=== PATIENT | female | born 1980 | race Two or more races ===

== ENCOUNTER 2017-07-24 11:07 | Inpatient (IN) | payer BC ==
[~2017-07-24] VITALS: Ht 162.6 cm; Wt 44.2 kg
[2017-07-24 11:17] VITALS: Ht 162.6 cm; Wt 44.2 kg
[2017-07-24 12:15] LABS: microscopic required? NO
[2017-07-24 12:21] LABS: BASOPHIL % 0.4 % (0-2); PLATELET COUNT 223 x10^3mcL (130-400)
[2017-07-24 12:24] LABS: UA SPECIFIC GRAVITY <=1.005 (1.005-1.035); urine erythrocyte NEGATIVE (NEGATIVE)
[2017-07-24 12:43] LABS: CALCIUM 9.6 mg/dL (8.5-10.1); CARBON DIOXIDE 29.1 mmol/L (21-32); CHLORIDE SERUM 98 mmol/L (98-107); CREATININE SERUM 1.1 mg/dL (0.6-1.0); GFR1 59 mL/min; GLUCOSE SERUM 100 mg/dL (74-106); POTASSIUM SERUM 3.8 mmol/L (3.5-5.1); SODIUM SERUM 136 mmol/L (136-145)
[2017-07-24 12:44] LABS: AMPHETAMINE QUAL UR NONE DETECTED (NEG <=1000)
[2017-07-24 12:48] LABS: ALBUMIN 4.1 g/dL (3.4-5.0); ALKALINE PHOSPHATASE 69 U/L (46-116); ALT/SGPT 21 U/L (14-59); AST/SGOT 15 U/L (15-37); BILIRUBIN TOTAL 0.49 mg/dL (0.20-1.00); TOTAL PROTEIN, SERUM 7.3 g/dL (6.4-8.2)
[2017-07-24 14:20] LABS: T3 TOTAL 0.86 ng/mL
[2017-07-24 14:35] LABS: CHOLESTEROL/HDL RATIO 2.6; MAGNESIUM 2.1 mg/dL (1.8-2.4); PHOSPHOROUS 4.9 mg/dL (2.5-4.9)
[2017-07-24 15:30] VITALS: BP 99/55
[2017-07-24 15:51] LABS: FREE T4 1.03 ng/dL (0.76-1.46); T4(THYROXINE) 8.7 ug/dL (4.7-13.3)
[2017-07-24 18:37] VITALS: BP 91/59
[2017-07-24 20:00] VITALS: BP 86/54
[2017-07-25 05:26] LABS: BASOPHIL % 0.6 % (0-2); PLATELET COUNT 180 x10^3mcL (130-400); RED CELL DISTRIBUTION WIDTH 14.1 % (11.5-14.5)
[2017-07-25 05:42] LABS: CALCIUM 8.2 mg/dL (8.5-10.1); CARBON DIOXIDE 27.5 mmol/L (21-32); CHLORIDE SERUM 106 mmol/L (98-107); CREATININE SERUM 0.8 mg/dL (0.6-1.0); GFR1 > 60 mL/min; GLUCOSE SERUM 100 mg/dL (74-106); MAGNESIUM 1.8 mg/dL (1.8-2.4); PHOSPHOROUS 4.3 mg/dL (2.5-4.9); POTASSIUM SERUM 3.7 mmol/L (3.5-5.1); SODIUM SERUM 139 mmol/L (136-145)
[2017-07-25 06:20] VITALS: BP 97/38
[2017-07-25 09:23] VITALS: BP 93/43
[2017-07-25] MEDS ORDERED: QUETIAPINE FUMA25 M1 PO (09:53)
[2017-07-25] MEDS ORDERED: SERTRALINE50 M1 PO (09:54)
[2017-07-25] MEDS ORDERED: ZOLOFT25 MG PO (10:15)
== END 2017-07-25 10:53 | disposition home or self-care (01) | DRG 314 ==
LOC: ED 11:07 → IC 12:43 → DU 12:43 → IC 13:59
PROVIDERS: Emergency Medicine; Family Medicine
DX: I95.9 Hypotension, unspecified (principal); G92 Toxic encephalopathy; F17.210 Nicotine dependence, cigarettes, uncomplicated; R00.1 Bradycardia, unspecified; D72.829 Elevated white blood cell count, unspecified
CPT/HCPCS: 83880; 84439; G0480; J7030; Q0092